=== PATIENT | male | born 1985 | race Caucasian/White ===

== ENCOUNTER 2018-12-19 17:48 | Observation (INO) | payer OTHER, BC ==
[2018-12-19] MEDS ORDERED: NITROGLYCERIN OINT 1 INCH/GM PACKET TOPICAL STA (17:56)
--- NOTE | 2018-12-19 18:07 | ED ---
General Adult HPI - General Stated complaint: Chest Pain Time Seen by Provider: 12/19/18 17:50 Source: RN notes reviewed - History of Present Illness Initial comments: This is a 33-year-old male who presents emergency Department complaining of chest pain. Patient states he had multiple episodes since Monday. Patient states she's also become more more short of breath since Monday. Patient states any little exertion causes some shortness of breath. Patient describes the chest pain as heaviness on his chest that radiates to his neck. Patient states she's also had multiple episodes of lightheadedness. Patient states on the way and he was given 2 nitroglycerin and it completely resolved his pain. Patient states he has strong family history of heart disease. Patient states he has not have any known heart disease he does not smoke he has no diabetes no high blood pressure no high cholesterol. Patient states he did have some diaphoretic episodes with the chest pain - Related Data Home Medications Medication Instructions Recorded Confirmed Capsaicin [Zostrix] 1 applic TOPICAL QID 12/19/18 12/19/18 Diltiazem Oral [Cardizem*] 60 mg PO BID 12/19/18 12/19/18 Dotera Vitamin Pack 1 tab PO DAILY 12/19/18 12/19/18 Lidocaine 5% Patch [Lidoderm 5% 1 patch TRANSDERM DAILY PRN 12/19/18 12/19/18 Patch] Meloxicam [Mobic] 7.5 mg PO BID 12/19/18 12/19/18 Omeprazole 20 mg PO BID 12/19/18 12/19/18 Allergies Allergy/AdvReac Type Severity Reaction Status Date / Time No Known Allergies Allergy Verified 12/19/18 18:16 Review of Systems ROS Statement: Those systems with pertinent positive or pertinent negative responses have been documented in the HPI. ROS Other: All systems not noted in ROS Statement are negative. Past Medical History Past Medical History: GERD/Reflux, Sleep Apnea/CPAP/BIPAP Additional Past Medical History / Comment(s): USES CPAP. ARRYTHMIA (DOES NOT KNOW TYPE). History of Any Multi-Drug Resistant Organisms: None Reported Past Surgical History: Hernia Repair, Orthopedic Surgery Additional Past Surgical History / Comment(s): BILATERAL SHOULDERS. HERNIA X2. Past Anesthesia/Blood Transfusion Reactions: No Reported Reaction Smoking Status: Never smoker Past Alcohol Use History: Occasional Past Drug Use History: None Reported General Exam - General Exam Comments Initial Comments: GENERAL: Patient is well-developed and well-nourished. Patient is nontoxic and well- hydrated and is in mild distress. ENT: Neck is soft and supple. No significant lymphadenopathy is noted. Oropharynx is clear. Moist mucous membranes. Neck has full range of motion without eliciting any pain. EYES: The sclera were anicteric and conjunctiva were pink and moist. Extraocular movements were intact and pupils were equal round and reactive to light. Eyelids were unremarkable. PULMONARY: Unlabored respirations. Good breath sounds bilaterally. No audible rales rhonchi or wheezing was noted. CARDIOVASCULAR: There is a regular rate and rhythm without any murmurs gallops or rubs. ABDOMEN: Soft and nontender with normal bowel sounds. No palpable organomegaly was noted. There is no palpable pulsatile mass. SKIN: Skin is clear with no lesions or rashes and otherwise unremarkable. NEUROLOGIC: Patient is alert and oriented x3. Cranial nerves II through XII are grossly intact. Motor and sensory are also intact. Normal speech, volume and content. Symmetrical smile. MUSCULOSKELETAL: Normal extremities with adequate strength and full range of motion. No lower extremity swelling or edema. No calf tenderness. LYMPHATICS: No significant lymphadenopathy is noted PSYCHIATRIC: Normal psychiatric evaluation. Course Vital Signs 12/19/18 12/19/18 12/19/18 17:52 19:00 20:00 Temperature 97.4 F L Pulse Rate 70 69 71 Respiratory 20 12 16 Rate Blood Pressure 127/86 121/79 141/83 O2 Sat by Pulse 96 95 95 Oximetry Medical Decision Making - Medical Decision Making EKG shows normal sinus rhythm at 70 bpm [place] interval is 152 QRS is 90 QT interval 392 QTC is 429. Patient's EKG shows no ST segment elevation or depression or T wave abnormalities are noted. Chest x-ray shows no acute abnormality. Patient's pain resolved after the nitroglycerin and he remained chest pain-free in the emergency department. I spoke with Dr. davis to admit the patient admitted patient I consult cardiology. - Lab Data Result diagrams: 12/19/18 18:12/19/18 18:09 Lab Results 12/19/18 12/19/18 12/19/18 Range/Units 18:09 18:09 18:09 WBC 8.8 (3.8-10.6) k/uL RBC 5.04 (4.30-5.90) m/uL Hgb 14.9 (13.0-17.5) gm/dL Hct 43.6 (39.0-53.0) % MCV 86.6 (80.0-100.0) fL MCH 29.5 (25.0-35.0) pg MCHC 34.0 (31.0-37.0) g/dL RDW 12.3 (11.5-15.5) % Plt Count 292 (150-450) k/uL Neutrophils % 60 % Lymphocytes % 25 % Monocytes % 6 % Eosinophils % 5 % Basophils % 1 % Neutrophils # 5.3 (1.3-7.7) k/uL Lymphocytes # 2.2 (1.0-4.8) k/uL Monocytes # 0.6 (0-1.0) k/uL Eosinophils # 0.4 (0-0.7) k/uL Basophils # 0.1 (0-0.2) k/uL PT 10.8 (9.0-12.0) sec INR 1.0 (<1.2) APTT 26.6 (22.0-30.0) sec D-Dimer 0.90 H (<0.60) mg/L FEU Sodium 142 (137-145) mmol/L Potassium 4.0 (3.5-5.1) mmol/L Chloride 107 (98-107) mmol/L Carbon Dioxide 24 (22-30) mmol/L Anion Gap 11 mmol/L BUN 15 (9-20) mg/dL Creatinine 1.16 (0.66-1.25) mg/dL Est GFR (CKD-EPI)AfAm >90 (>60 ml/min/1.73 sqM) Est GFR (CKD-EPI)NonAf 83 (>60 ml/min/1.73 sqM) Glucose 95 (74-99) mg/dL Calcium 8.8 (8.4-10.2) mg/dL Magnesium 2.1 (1.6-2.3) mg/dL Total Bilirubin 0.3 (0.2-1.3) mg/dL AST 43 (17-59) U/L ALT 40 (21-72) U/L Alkaline Phosphatase 130 H (38-126) U/L Troponin I (0.000-0.034) ng/mL NT-Pro-B Natriuret Pep pg/mL Total Protein 8.3 H (6.3-8.2) g/dL Albumin 4.7 (3.5-5.0) g/dL 12/19/18 12/19/18 Range/Units 18:09 18:09 WBC (3.8-10.6) k/uL RBC (4.30-5.90) m/uL Hgb (13.0-17.5) gm/dL Hct (39.0-53.0) % MCV (80.0-100.0) fL MCH (25.0-35.0) pg MCHC (31.0-37.0) g/dL RDW (11.5-15.5) % Plt Count (150-450) k/uL Neutrophils % % Lymphocytes % % Monocytes % % Eosinophils % % Basophils % % Neutrophils # (1.3-7.7) k/uL Lymphocytes # (1.0-4.8) k/uL Monocytes # (0-1.0) k/uL Eosinophils # (0-0.7) k/uL Basophils # (0-0.2) k/uL PT (9.0-12.0) sec INR (<1.2) APTT (22.0-30.0) sec D-Dimer (<0.60) mg/L FEU Sodium (137-145) mmol/L Potassium (3.5-5.1) mmol/L Chloride (98-107) mmol/L Carbon Dioxide (22-30) mmol/L Anion Gap mmol/L BUN (9-20) mg/dL Creatinine (0.66-1.25) mg/dL Est GFR (CKD-EPI)AfAm (>60 ml/min/1.73 sqM) Est GFR (CKD-EPI)NonAf (>60 ml/min/1.73 sqM) Glucose (74-99) mg/dL Calcium (8.4-10.2) mg/dL Magnesium (1.6-2.3) mg/dL Total Bilirubin (0.2-1.3) mg/dL AST (17-59) U/L ALT (21-72) U/L Alkaline Phosphatase (38-126) U/L Troponin I <0.012 (0.000-0.034) ng/mL NT-Pro-B Natriuret Pep <11 pg/mL Total Protein (6.3-8.2) g/dL Albumin (3.5-5.0) g/dL Disposition Clinical Impression: Chest pain Disposition: ADMITTED IP TO THIS HOSP Referrals: [facility],Clinic [Primary Care Provider] - 1-2 days Time of Disposition: 20:21
[2018-12-19 18:18] LABS: Basophils # (A) 0.1 k/uL (0-0.2); Basophils % (A) 1 %; Eosinophils # (A) 0.4 k/uL (0-0.7); Eosinophils % (A) 5 %; HCT 43.6 % (39.0-53.0); HGB 14.9 gm/dL (13.0-17.5); Lymphocytes # (A) 2.2 k/uL (1.0-4.8); Lymphocytes % (A) 25 %; MCH 29.5 pg (25.0-35.0); MCV 86.6 fL (80.0-100.0); Mean Platelet Volume 6.6; Monocytes # (A) 0.6 k/uL (0-1.0); Monocytes % (A) 6 %; Neutrophils # (A) 5.3 k/uL (1.3-7.7); Neutrophils % (A) 60 %; Platelet Count 292 k/uL (150-450); RBC 5.04 m/uL (4.30-5.90); RDW 12.3 % (11.5-15.5); WBC 8.8 k/uL (3.8-10.6)
[2018-12-19 18:26] LABS: ALT 40 U/L (21-72); AST 43 U/L (17-59); African American GFR (CKD) >90 (>60 ml/min/1.73 sqM); Albumin 4.7 g/dL (3.5-5.0); Alkaline Phosphatase 130 U/L (38-126); Anion Gap 11 mmol/L; Blood Urea Nitrogen 15 mg/dL (9-20); Calcium 8.8 mg/dL (8.4-10.2); Carbon Dioxide 24 mmol/L (22-30); Chloride 107 mmol/L (98-107); Glucose 95 mg/dL (74-99); Magnesium 2.1 mg/dL (1.6-2.3); Sodium 142 mmol/L (137-145); Total Bilirubin 0.3 mg/dL (0.2-1.3); Total Protein 8.3 g/dL (6.3-8.2)
[2018-12-19 18:30] LABS: Partial Thromboplastin Time 26.6 sec (22.0-30.0); Prothrombin Time 10.8 sec (9.0-12.0)
[2018-12-19 18:35] LABS: D-Dimer 0.9 mg/L FEU (<0.60)
--- NOTE | 2018-12-19 19:07 | XR ---
EXAMINATION: XR chest 2V DATE AND TIME: 12/19/2018 6:24 PM CLINICAL INDICATION: PHH; Chest Pain TECHNIQUE: Departmental protocol COMPARISON: 07/16/2012 FINDINGS: The lungs are clear. The pleural spaces are negative. The cardiac silhouette is not enlarged. The remainder of the mediastinal silhouette is unremarkable. The skeletal structures and soft tissues are negative for acute findings. IMPRESSION: NO ACUTE PROCESS.
--- NOTE | 2018-12-19 20:07 | CT ---
EXAMINATION TYPE: CT chest angio for PE with contrast, with 3D reconstruction renderings DATE OF EXAM: 12/19/2018 COMPARISON: None HISTORY: chest pain CT DLP: 534.1 mGycm Automated exposure control for dose reduction was used. CONTRAST: CT Chest for pulmonary embolism performed with with IV Contrast, patient injected with 93cc mL of Isovue 370. FINDINGS: LUNGS: The lungs are grossly clear, there is no concerning parenchymal mass or nodule identified. T here is no pleural effusion or pneumothorax seen. The tracheobronchial tree is patent. MEDIASTINUM: There is satisfactory enhancement of the pulmonary artery and its branches, there is no CT evidence for pulmonary embolism. There are no greater than 1 cm hilar or mediastinal lymph nodes. No acute aortic findings. No cardiomegaly. No pericardial effusion is seen. OTHER: No additional significant abnormality is seen. IMPRESSION: No acute process.
[2018-12-19] MEDS ORDERED: NITROGLYCERIN SL TABS 0.4 MG TAB SUBLINGUAL PRN (20:25)
[2018-12-19] MEDS: NITROGLYCERIN OINT 1 INCH/GM PACKET TOPICAL SCH (23:27)
[2018-12-20] MEDS: MELOXICAM 7.5 MG TAB PO SCH ×2 (00:53→10:23)
[2018-12-20] MEDS: DILTIAZEM ORAL 60 MG TAB PO SCH ×2 (00:53→10:24)
[2018-12-20 03:38] LABS: Cholesterol 204 mg/dL (<200); HDL Cholesterol 36 mg/dL (40-60); LDL Cholesterol,Calculated 89 mg/dL (0-99); Triglycerides 396 mg/dL (<150)
[2018-12-20] MEDS: NITROGLYCERIN OINT 1 INCH/GM PACKET TOPICAL SCH (06:15)
[2018-12-20 07:49] VITALS: RESP 16
--- NOTE | 2018-12-20 08:31 | CONS ---
CONSULTATION Mr. De Santiago is a 33-year-old male who is followed at the [facility] who presented with symptoms of chest discomfort and palpitation. His symptoms started on Monday on and off with initially palpitations. Subsequently he started to have chest tightness and dyspnea. The dyspnea and chest discomfort were worse at rest and better with physical activity, lasting for about 10 minutes. He is active physically, has no associated symptoms. He has been having palpitation on and off for the last few years and has been evaluated about 2 years or so ago in the [facility] in [place] and underwent a myocardial perfusion imaging and an echocardiogram and according to him, they were unremarkable. He denies any PND, orthopnea, or peripheral edema. No syncope. No significant dizziness with palpitation. He has no recent fever or cough. His coronary risk factors are negative for hypertension, hyperlipidemia, or diabetes. He is a nonsmoker. He has a family history of premature coronary disease in his father side of the family including his father who had a bypass in his 50s. SOCIAL HISTORY: He has a social alcohol intake. He drinks 2 cups of coffee a day. MEDICATION: His medications include omeprazole 20 mg twice a day, Mobic 7.5 mg twice a day, diltiazem 60 mg twice a day. REVIEW OF SYSTEMS: RESPIRATORY SYSTEM: He has no documented history of asthma, emphysema or bronchitis in the recent past. GI SYSTEM: No recent GI bleeding. No peptic ulcer disease. SYSTEM: No dysuria or hematuria. NERVOUS SYSTEM: No stroke or seizure. PHYSICAL EXAMINATION: He is a 33-year-old male, alert, oriented, in no apparent distress. Blood pressure 102/60 with the heart rate in the 70s. HEAD: Normocephalic. EYES: Sclerae nonicteric. NECK: Good upstroke. No bruit. No jugular venous distention. LUNGS: Clear to auscultation. HEART: Regular rate and rhythm. S1, S2. No S3. No S4. No murmur or rub. ABDOMEN: Soft, nontender. Positive bowel sounds. No organomegaly. EXTREMITIES: No edema. Intact distal pulses. EKG reveals sinus mechanism, normal axis and intervals, QS in the inferior leads of unknown significant with no evolution. Chest x-ray revealed no acute infiltrate. Chest CT angiography revealed no acute infiltrate or pneumonia. LAB DATA: Lab data revealed troponin less than 0.012 for 3 samples. Cholesterol of 204, LDL of 89, triglycerides of 396. BUN and creatinine 15 and 1.16. Hemoglobin of 14.9. D- dimer of 0.9. IMPRESSION: 1. Symptoms of chest discomfort of unclear etiology. Has atypical features for ischemic heart disease. 2. Palpitation with no evidence of malignant arrhythmia on the monitor. 3. Hypertriglyceridemia. RECOMMENDATION: I have recommended proceeding with an echocardiogram and a stress echo and depending on those results, further recommendation will be made. His baseline EKG raised the question of inferior myocardial infarction, but there was no evolution. Thank you for this consult. We will follow with you. MMODL / IJN: [id number] /
[2018-12-20] MEDS ORDERED: ASPIRIN 325 MG TAB PO SCH (09:00)
[2018-12-20] MEDS ORDERED: ASPIRIN 81 MG PO SCH (09:00)
[2018-12-20 11:38] VITALS: BP 109/74; PULSE 78; TEMP 97.8
--- NOTE | 2018-12-20 12:50 | ECHOF ---
Referral Reason:cp MEASUREMENTS -------- HEIGHT: 172.7 cm WEIGHT: 106.6 kg BP: 102/66 RVIDd: 2.2 cm (< 3.3) IVSd: 1.4 cm (0.6 - 1.1) LVIDd: 4.1 cm (3.9 - 5.3) LVPWd: 1.6 cm (0.6 - 1.1) IVSs: 2.0 cm LVIDs: 2.2 cm LVPWs: 1.7 cm LAESV Index (A-L): 19.22 ml/m Ao Diam: 3.7 cm (2.0 - 3.7) AV Cusp: 2.5 cm (1.5 - 2.6) LA Diam: 3.1 cm (2.7 - 3.8) MV EXCURSION: 15.271 mm (> 18.000) MV EF SLOPE: 77 mm/s (70 - 150) EPSS: 0.2 cm MV E Malik: 0.58 m/s MV DecT: 312 ms MV A Malki: 0.58 m/s MV E/A Ratio: 1.01 RAP: 15.00 mmHg RVSP: 36.27 mmHg FINDINGS -------- Sinus rhythm. This was a technically good study. The left ventricular size is normal. There is moderate concentric left ventricular hypertrophy. O verall left ventricular systolic function is normal with, an EF between 55 - 60 %. The right ventricle is normal in size. Normal LA size by volume 22+/-6 ml/m2. The right atrial size is normal. Interatrial and interventricular septum intact. The aortic valve is trileaflet, and appears structurally normal. No aortic stenosis or regurgitation. The mitral valve is normal. There is trace mitral regurgitation. Mild tricuspid regurgitation present. There is mild pulmonary hypertension. The right ventricular systolic pressure, as measured by Doppler, is 36.27mmHg. Trace/mild (physiologic) pulmonic regurgitation. The aortic root size is normal. The inferior vena cava is mildly dilated. There is no pericardial effusion. CONCLUSIONS -------- 1. Sinus rhythm. 2. This was a technically good study. 3. The left ventricular size is normal. 4. There is moderate concentric left ventricular hypertrophy. 5. Overall left ventricular systolic function is normal with, an EF between 55 - 60 %. 6. Normal LA size by volume 22+/-6 ml/m2. 7. Interatrial and interventricular septum intact. 8. The aortic valve is trileaflet, and appears structurally normal. No aortic stenosis or regurgitati on. 9. The mitral valve is normal. 10. There is trace mitral regurgitation. 11. Mild tricuspid regurgitation present. 12. There is mild pulmonary hypertension. 13. Trace/mild (physiologic) pulmonic regurgitation. 14. The aortic root size is normal. 15. The inferior vena cava is mildly dilated. 16. There is no pericardial effusion. SHELLFISH SHUCKER: Danna Carrera RDCS
--- NOTE | 2018-12-20 13:40 | ECHOS ---
STRESS ECHOCARDIOGRAM DATE OF SERVICE: 12/20/2018 INDICATIONS: Chest pain. MEDICATIONS: BASELINE HEART RATE: 67 BASELINE BLOOD PRESSURE: 110/62 MAXIMUM HEART RATE: 172 MAXIMUM BLOOD PRESSURE: 185/58 85% MPHR: 159 100% MPHR: 187 METS: 12.2 MAXIMUM STAGE REACHED: IV TOTAL EXERCISE TIME: 11 minutes CLINICAL INFORMATION: Baseline rhythm is sinus mechanism, rate 67, normal axis, intervals, cannot exclude inferior myocardial infarction. Baseline blood pressure 110/62 mmHg. Patient exercised on Adolfo protocol for 11 minutes reaching peak rate 172 beats per minute which is equal to 92% maximum predicted heart rate. Peak blood pressure 185/58 mmHg. Test was terminated secondary to fatigue. There was no chest pain. Electrocardiograph monitoring revealed no evidence of ischemic ST-segment changes. Baseline echocardiogram revealed normal wall thickening and motion. At peak exercise, there was normal wall motion augmentation with no hypokinesis or dyskinesis. CONCLUSION: 1. Good exercise tolerance with normal EKG response to exercise. 2. Normal stress echocardiogram with no evidence of stress induced ischemia. MMODL / IJN: [id number] /
--- NOTE | 2018-12-20 14:18 | P.HPIM ---
History of Present Illness -year-old pleasant male came in with complains of palpitations with chest tightness lasted for about 10 minutes [id number] pain in the precordial area radiating to the neck area. Patient had dizziness of troponins and the EKG which are negative. Patient had a stress test that is negative. Minimally elevated d-dimer because of which patient had a CT end of the chest which is negative. Patient is clinically doing well chest pain resolved probably Mus[place] skeletal nature will be discharged today. Patient has mildly elevated triglycerides at counseling was provided. Patient does have family history of premature coronary artery disease in her father. Patient is on Cardizem and firearm arrhythmia kind of arrhythmia is not known. Patient is sinus rhythm. Review of Systems REVIEW OF SYSTEMS: CONSTITUTIONAL: No fever, no malaise, no fatigue. HEENT: No recent visual problems or hearing problems. Denied any sore throat. CARDIOVASCULAR: No orthopnea, PND, no syncope. PULMONARY: No shortness of breath, no cough, no hemoptysis. GASTROINTESTINAL: No diarrhea, no nausea, no vomiting, no abdominal pain. NEUROLOGICAL: No headaches, no weakness, no numbness. HEMATOLOGICAL: Denies any bleeding or petechiae. GENITOURINARY: Denies any burning micturition, frequency, or urgency. MUSCULOSKELETAL/RHEUMATOLOGICAL: Denies any joint pain, swelling, or any muscle pain. ENDOCRINE: Denies any polyuria or polydipsia. The rest of the 14-point review of systems is negative. Past Medical History Past Medical History: GERD/Reflux, Sleep Apnea/CPAP/BIPAP Additional Past Medical History / Comment(s): USES CPAP. ARRYTHMIA (DOES NOT KNOW TYPE). History of Any Multi-Drug Resistant Organisms: None Reported Past Surgical History: Hernia Repair, Orthopedic Surgery Additional Past Surgical History / Comment(s): BILATERAL SHOULDERS. HERNIA X2. Past Anesthesia/Blood Transfusion Reactions: No Reported Reaction Smoking Status: Never smoker - Past Family History Mother Family Medical History: No Reported History Father Family Medical History: Coronary Artery Disease (CAD), Hypertension Additional Family Medical History / Comment(s): cabg Sister(s) Family Medical History: Thyroid Disorder Daughter(s) Family Medical History: No Reported History Medications and Allergies Home Medications Medication Instructions Recorded Confirmed Type Capsaicin [Zostrix] 1 applic TOPICAL QID 12/19/18 12/19/18 History Diltiazem Oral [Cardizem*] 60 mg PO BID 12/19/18 12/19/18 History Dotera Vitamin Pack 1 tab PO DAILY 12/19/18 12/19/18 History Lidocaine 5% Patch [Lidoderm 5% 1 patch TRANSDERM DAILY PRN 12/19/18 12/19/18 History Patch] Meloxicam [Mobic] 7.5 mg PO BID 12/19/18 12/19/18 History Omeprazole 20 mg PO BID 12/19/18 12/19/18 History Allergies Allergy/AdvReac Type Severity Reaction Status Date / Time No Known Allergies Allergy Verified 12/19/18 22:54 Physical Exam Vitals: Vital Signs Temp Pulse Pulse Resp BP BP Pulse Ox 12/20/18 11:37 97.8 F 78 16 109/74 92 L 12/20/18 07:46 97.7 F 76 16 102/66 91 L 12/20/18 03:58 97.7 F 71 18 104/58 94 L 12/20/18 03:29 18 12/19/18 23:50 97.5 F L 81 18 122/72 95 12/19/18 23:19 16 12/19/18 21:38 97.9 F 12/19/18 20:00 71 16 141/83 95 12/19/18 19:00 69 12 121/79 95 12/19/18 17:52 97.4 F L 70 20 127/86 96 Intake and Output 12/19/18 12/20/18 12/20/18 22:59 06:59 14:59 Other: Voiding Method Toilet Toilet # Voids 2 Weight 107.002 kg PHYSICAL EXAMINATION: GENERAL: The patient is alert and oriented x3, not in any acute distress. Well developed, well nourished. HEENT: Pupils are round and equally reacting to light. EOMI. No scleral icterus. No conjunctival pallor. Normocephalic, atraumatic. No pharyngeal erythema. No thyromegaly. CARDIOVASCULAR: S1 and S2 present. No murmurs, rubs, or gallops. PULMONARY: Chest is clear to auscultation, no wheezing or crackles. ABDOMEN: Soft, nontender, nondistended, normoactive bowel sounds. No palpable organomegaly. MUSCULOSKELETAL: No joint swelling or deformity. EXTREMITIES: No cyanosis, clubbing, or pedal edema. NEUROLOGICAL: Gross neurological examination did not reveal any focal deficits. SKIN: No rashes. Results CBC & Chem 7: 12/19/18 18:09 12/19/18 18:09 Labs: Abnormal Lab Results - Last 24 Hours (Table) 12/19/18 12/19/18 12/19/18 Range/Units 18:09 18: 18:09 D-Dimer 0.90 H (<0.60) mg/L FEU Alkaline Phosphatase 130 H (38-126) U/L Total Protein 8.3 H (6.3-8.2) g/dL Triglycerides 396 H (<150) mg/dL Cholesterol 204 H (<200) mg/dL HDL Cholesterol 36 L (40-60) mg/dL Thrombosis Risk Factor Assmnt - Choose All That Apply Any of the Below Risk Factors Present?: Yes Each Factor Represents 1 point: Obesity (BMI >25) Other Risk Factors: No Other congenital or acquired thrombophilia - If yes, enter type in comment: No Thrombosis Risk Factor Assessment Total Risk Factor Score: 1 Thrombosis Risk Factor Assessment Level: Low Risk Assessment and Plan Plan: -chest discomfort probably Musko skeletal etiology not clear though. Resolved rule out a concurrent syndromes. -Rule out pulmonary embolism -Hypertriglyceridemia dietary counseling Plan as mentioned in the history itself
--- NOTE | 2018-12-20 14:18 | P.DS ---
Providers Date of admission: 12/19/18 20:25 Attending physician: Kraig Ríos MD Consults: 12/19/18 20:25 Consult Physician Urgent Consulting Provider: [facility] Consult Reason/Comments: Chest pain Do you want consulting provider notified?: Yes Primary care physician: [facility] Hospital Course: as mentioned in HPI Plan - Discharge Summary Discharge Rx Participant: No New Discharge Prescriptions: No Action Omeprazole 20 mg PO BID Meloxicam [Mobic] 7.5 mg PO BID Lidocaine 5% Patch [Lidoderm 5% Patch] 1 patch TRANSDERM DAILY PRN PRN Reason: LOW BACK PAIN Capsaicin [Zostrix] 1 applic TOPICAL QID Diltiazem Oral [Cardizem*] 60 mg PO BID Dotera Vitamin Pack 1 tab PO DAILY Discharge Medication List Capsaicin [Zostrix] 1 applic TOPICAL QID 12/19/18 [History] Diltiazem Oral [Cardizem*] 60 mg PO BID 12/19/18 [History] Dotera Vitamin Pack 1 tab PO DAILY 12/19/18 [History] Lidocaine 5% Patch [Lidoderm 5% Patch] 1 patch TRANSDERM DAILY PRN 12/19/18 [History] Meloxicam [Mobic] 7.5 mg PO BID 12/19/18 [History] Omeprazole 20 mg PO BID 12/19/18 [History] Follow up Appointment(s)/Referral(s): [facility] [Primary Care Provider] - 3 Days
== END 2018-12-20 15:21 | disposition home or self-care (01) ==
LOC: EC 17:48 → 1SOBS 20:25
PROVIDERS: ADMIT Internal Medicine; ATTEND Internal Medicine
DX: R07.89 Other chest pain (principal); R07.2 Precordial pain; R06.02 Shortness of breath; R42 Dizziness and giddiness; R00.2 Palpitations; R61 Generalized hyperhidrosis; R06.00 Dyspnea, unspecified; E78.1 Pure hyperglyceridemia; I49.9 Cardiac arrhythmia, unspecified; R79.89 Other specified abnormal findings of blood chemistry; K21.9 Gastro-esophageal reflux disease without esophagitis; G47.30 Sleep apnea, unspecified; E66.9 Obesity, unspecified; Z68.35 Body mass index [BMI] 35.0-35.9, adult; Z99.89 Dependence on other enabling machines and devices; Z79.1 Long term (current) use of non-steroidal anti-inflammatories (NSAID); Z79.899 Other long term (current) drug therapy; Z82.49 Family history of ischemic heart disease and other diseases of the circulatory system; Z83.49 Family history of other endocrine, nutritional and metabolic diseases
CPT/HCPCS: 36415; 93005; 93306; 93351; 85379; 83880; 80061; 80053; 83735; 84484 ×2; 85025; 85610; 85730; 71046; 71275; G0378 ×2; Q9967

== ENCOUNTER 2020-10-28 14:50 | Emergency (ER) | payer OTHER ==
[2020-10-28 15:02] VITALS: RESP 20
--- NOTE | 2020-10-28 15:41 | XR ---
EXAMINATION TYPE: XR chest 2V DATE OF EXAM: 10/28/2020 COMPARISON: NONE HISTORY: Chest pain TECHNIQUE: Frontal and lateral views of the chest are obtained. FINDINGS: There is no focal air space opacity. No evidence for pneumothorax. No pleural effusion. The cardiac silhouette size is within normal limits. The osseous structures are grossly intact. IMPRESSION: 1. No acute cardiopulmonary process.
[2020-10-28 16:05] LABS: Basophils # (A) 0.1 k/uL (0-0.2); Basophils % (A) 1 %; Eosinophils # (A) 0.3 k/uL (0-0.7); Eosinophils % (A) 5 %; HCT 43.4 % (39.0-53.0); HGB 15.6 gm/dL (13.0-17.5); Lymphocytes # (A) 2.3 k/uL (1.0-4.8); Lymphocytes % (A) 33 %; MCH 31.1 pg (25.0-35.0); MCV 86.4 fL (80.0-100.0); Mean Platelet Volume 6.7; Monocytes # (A) 0.5 k/uL (0-1.0); Monocytes % (A) 7 %; Neutrophils # (A) 3.7 k/uL (1.3-7.7); Neutrophils % (A) 53 %; Platelet Count 330 k/uL (150-450); RBC 5.03 m/uL (4.30-5.90); RDW 11.8 % (11.5-15.5)
[2020-10-28 16:35] LABS: ALT 47 U/L (4-49); AST 45 U/L (17-59); African American GFR (CKD) >90 (>60 ml/min/1.73 sqM); Albumin 4.9 g/dL (3.5-5.0); Alkaline Phosphatase 184 U/L (38-126); Anion Gap 10 mmol/L; Blood Urea Nitrogen 11 mg/dL (9-20); Calcium 9.4 mg/dL (8.4-10.2); Carbon Dioxide 24 mmol/L (22-30); Chloride 104 mmol/L (98-107); Glucose 99 mg/dL (74-99); Non-African American GFR(CKD) >90 (>60 ml/min/1.73 sqM); Potassium 4.4 mmol/L (3.5-5.1); Sodium 138 mmol/L (137-145); Total Bilirubin 0.4 mg/dL (0.2-1.3); Total Protein 8.8 g/dL (6.3-8.2)
--- NOTE | 2020-10-28 17:13 | ED ---
General Adult HPI - General Chief complaint: Chest Pain Stated complaint: chest pain, SOB, isha pain Time Seen by Provider: 10/28/20 15:00 Source: patient, RN notes reviewed, old records reviewed Mode of arrival: ambulatory Limitations: no limitations - History of Present Illness Initial comments: This is a 35-year-old male who presents emergency Department with no significant past medical history. Patient states she's had some left-sided chest discomfort that he states lasts only at most 30 seconds. Patient states it happens about 15 times today. Patient states she's been dealing with this for over 2 years. 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 Patient states he's supposed to get another stress test and near future as well as a Holter monitor. Patient denies any difficulty breathing. Patient denies any recent fever chills or cough. Patient denies any radiation of pain into the jaw or arm. Patient states occasionally has felt some back tightness. Patient denies abdominal pain patient denies nausea vomiting diarrhea. Patient stated leg swelling or calf tenderness. - Related Data Home Medications Medication Instructions Recorded Confirmed Capsaicin [Zostrix] 1 applic TOPICAL QID 12/19/18 12/19/18 Diltiazem Oral [Cardizem*] 60 mg PO BID 12/19/18 12/19/18 Dotera Vitamin Pack 1 tab PO DAILY 12/19/18 12/19/18 Lidocaine 5% Patch [Lidoderm 5% 1 patch TRANSDERM DAILY PRN 12/19/18 12/19/18 Patch] Meloxicam [Mobic] 7.5 mg PO BID 12/19/18 12/19/18 Omeprazole 20 mg PO BID 12/19/18 12/19/18 Allergies Allergy/AdvReac Type Severity Reaction Status Date / Time No Known Allergies Allergy Verified 10/28/20 15:02 Review of Systems ROS Statement: Those systems with pertinent positive or pertinent negative responses have been documented in the HPI. ROS Other: All systems not noted in ROS Statement are negative. Past Medical History Past Medical History: GERD/Reflux, Sleep Apnea/CPAP/BIPAP Additional Past Medical History / Comment(s): USES CPAP. ARRYTHMIA (DOES NOT KNOW TYPE). History of Any Multi-Drug Resistant Organisms: None Reported Past Surgical History: Hernia Repair, Orthopedic Surgery Additional Past Surgical History / Comment(s): BILATERAL SHOULDERS. HERNIA X2. Past Anesthesia/Blood Transfusion Reactions: No Reported Reaction Past Psychological History: No Psychological Hx Reported Smoking Status: Never smoker Past Alcohol Use History: Occasional Past Drug Use History: None Reported - Past Family History Mother Family Medical History: No Reported History Father Family Medical History: Coronary Artery Disease (CAD), Hypertension Additional Family Medical History / Comment(s): cabg Sister(s) Family Medical History: Thyroid Disorder Daughter(s) Family Medical History: No Reported History General Exam - General Exam Comments Initial Comments: GENERAL: Patient is well-developed and well-nourished. Patient is nontoxic and well- hydrated and is in no acute distress. ENT: Neck is soft and supple. No significant lymphadenopathy is noted. Oropharynx is clear. Moist mucous membranes. Neck has full range of motion without eliciting any pain. EYES: The sclera were anicteric and conjunctiva were pink and moist. Extraocular movements were intact and pupils were equal round and reactive to light. Eyelids were unremarkable. PULMONARY: Unlabored respirations. Good breath sounds bilaterally. No audible rales rhonchi or wheezing was noted. CARDIOVASCULAR: There is a regular rate and rhythm without any murmurs gallops or rubs. ABDOMEN: Soft and nontender with normal bowel sounds. SKIN: Skin is clear with no lesions or rashes and otherwise unremarkable. NEUROLOGIC: Patient is alert and oriented x3. Cranial nerves II through XII are grossly intact. Motor and sensory are also intact. Normal speech, volume and content. Symmetrical smile. MUSCULOSKELETAL: Normal extremities with adequate strength and full range of motion. No lower extremity swelling or edema. No calf tenderness. LYMPHATICS: No significant lymphadenopathy is noted PSYCHIATRIC: Normal psychiatric evaluation. Limitations: no limitations Course Vital Signs 10/28/20 14:57 Temperature 98.0 F Pulse Rate 71 Respiratory 20 Rate Blood Pressure 147/92 O2 Sat by Pulse 96 Oximetry Medical Decision Making - Medical Decision Making EKG shows normal sinus rhythm at 73 bpm WV interval 156 dresses 88 QT interval 390 QTC is 429. Patient's EKG shows no ST segment elevation or depression. - Lab Data Result diagrams: 10/28/20 15:58 10/28/20 15:58 Lab Results 10/28/20 10/28/20 10/28/20 Range/Units 15:58 15:58 15:58 WBC 7.0 (3.8-10.6) k/uL RBC 5.03 (4.30-5.90) m/uL Hgb 15.6 (13.0-17.5) gm/dL Hct 43.4 (39.0-53.0) % MCV 86.4 (80.0-100.0) fL MCH 31.1 (25.0-35.0) pg MCHC 36.0 (31.0-37.0) g/dL RDW 11.8 (11.5-15.5) % Plt Count 330 (150-450) k/uL MPV 6.7 Neutrophils % 53 % Lymphocytes % 33 % Monocytes % 7 % Eosinophils % 5 % Basophils % 1 % Neutrophils # 3.7 (1.3-7.7) k/uL Lymphocytes # 2.3 (1.0-4.8) k/uL Monocytes # 0.5 (0-1.0) k/uL Eosinophils # 0.3 (0-0.7) k/uL Basophils # 0.1 (0-0.2) k/uL PT Cancelled INR Cancelled APTT INFORMATION TECHNOLOGY MANAGER Sodium 138 (137-145) mmol/L Potassium 4.4 (3.5-5.1) mmol/L Chloride 104 (98-107) mmol/L Carbon Dioxide 24 (22-30) mmol/L Anion Gap 10 mmol/L BUN 11 (9-20) mg/dL Creatinine 1.06 (0.66-1.25) mg/dL Est GFR (CKD-EPI)AfAm >90 (>60 ml/min/1.73 sqM) Est GFR (CKD-EPI)NonAf >90 (>60 ml/min/1.73 sqM) Glucose 99 (74-99) mg/dL Calcium 9.4 (8.4-10.2) mg/dL Magnesium 2.0 (1.6-2.3) mg/dL Total Bilirubin 0.4 (0.2-1.3) mg/dL AST 45 (17-59) U/L ALT 47 (4-49) U/L Alkaline Phosphatase 184 H (38-126) U/L Troponin I (0.000-0.034) ng/mL Total Protein 8.8 H (6.3-8.2) g/dL Albumin 4.9 (3.5-5.0) g/dL 10/28/20 Range/Units 15:58 WBC (3.8-10.6) k/uL RBC (4.30-5.90) m/uL Hgb (13.0-17.5) gm/dL Hct (39.0-53.0) % MCV (80.0-100.0) fL MCH (25.0-35.0) pg MCHC (31.0-37.0) g/dL RDW (11.5-15.5) % Plt Count (150-450) k/uL MPV Neutrophils % % Lymphocytes % % Monocytes % % Eosinophils % % Basophils % % Neutrophils # (1.3-7.7) k/uL Lymphocytes # (1.0-4.8) k/uL Monocytes # (0-1.0) k/uL Eosinophils # (0-0.7) k/uL Basophils # (0-0.2) k/uL PT INR APTT Sodium (137-145) mmol/L Potassium (3.5-5.1) mmol/L Chloride (98-107) mmol/L Carbon Dioxide (22-30) mmol/L Anion Gap mmol/L BUN (9-20) mg/dL Creatinine (0.66-1.25) mg/dL Est GFR (CKD-EPI)AfAm (>60 ml/min/1.73 sqM) Est GFR (CKD-EPI)NonAf (>60 ml/min/1.73 sqM) Glucose (74-99) mg/dL Calcium (8.4-10.2) mg/dL Magnesium (1.6-2.3) mg/dL Total Bilirubin (0.2-1.3) mg/dL AST (17-59) U/L ALT (4-49) U/L Alkaline Phosphatase (38-126) U/L Troponin I <0.012 (0.000-0.034) ng/mL Total Protein (6.3-8.2) g/dL Albumin (3.5-5.0) g/dL Disposition Clinical Impression: Chest pain Disposition: HOME SELF-CARE Condition: Good Instructions (If sedation given, give patient instructions): Chest Pain (ED) Is patient prescribed a controlled substance at d/c from ED?: No Referrals: [facility],Clinic [Primary Care Provider] - 1-2 days Time of Disposition: 17:13
[2020-10-28 17:36] VITALS: BP 146/96; PULSE 72; TEMP 97.8
== END 2020-10-28 17:34 | disposition home or self-care (01) ==
LOC: EC 14:50
DX: R07.89 Other chest pain (principal); R06.02 Shortness of breath; M54.9 Dorsalgia, unspecified; K21.9 Gastro-esophageal reflux disease without esophagitis; G47.30 Sleep apnea, unspecified; Z79.899 Other long term (current) drug therapy
CPT/HCPCS: 36415; 71046; 80053; 83735; 84484; 85025; 85730; 93005; 99285

== ENCOUNTER 2021-08-12 13:59 | Emergency (ER) | payer BC, OTHER ==
[2021-08-12 14:07] VITALS: TEMP 98.6
--- NOTE | 2021-08-12 14:26 | ED ---
General Adult HPI - General Chief complaint: Chest Pain Stated complaint: Chest Pain Time Seen by Provider: 08/12/21 14:05 Source: patient, RN notes reviewed, old records reviewed Mode of arrival: wheelchair Limitations: no limitations - History of Present Illness Initial comments: This is a 36-year-old male who presents to the emergency department stating that he woke up this morning with a frontal headache and it was quite significant. Patient states he normally doesn't get headaches. Patient states it lasts about a half an hour now it's still there but much improved. Patient denies any neck pain or limited range of motion. Patient denies any fever chills. Patient states he's also been experiencing sharp chest pain that lasted about 10 seconds when it comes and goes away. Patient denies any difficulty breathing or shortness of breath per patient denies any nausea vomiting diarrhea. Patient denies any injury or trauma. - Related Data Home Medications Medication Instructions Recorded Confirmed Diltiazem Oral [Cardizem*] 60 mg PO BID 12/19/18 08/12/21 Omeprazole 40 mg PO DAILY 12/19/18 08/12/21 Ibuprofen [Motrin] 800 mg PO DAILY PRN 08/12/21 08/12/21 Allergies Allergy/AdvReac Type Severity Reaction Status Date / Time No Known Allergies Allergy Verified 08/12/21 15:30 Review of Systems ROS Statement: Those systems with pertinent positive or pertinent negative responses have been documented in the HPI. ROS Other: All systems not noted in ROS Statement are negative. Past Medical History Past Medical History: GERD/Reflux, Sleep Apnea/CPAP/BIPAP Additional Past Medical History / Comment(s): USES CPAP. ARRYTHMIA (DOES NOT KNOW TYPE). History of Any Multi-Drug Resistant Organisms: None Reported Past Surgical History: Hernia Repair, Orthopedic Surgery Additional Past Surgical History / Comment(s): BILATERAL SHOULDERS. HERNIA X2. Past Anesthesia/Blood Transfusion Reactions: No Reported Reaction Past Psychological History: No Psychological Hx Reported Smoking Status: Never smoker Past Alcohol Use History: Occasional Past Drug Use History: None Reported - Past Family History Mother Family Medical History: No Reported History Father Family Medical History: Coronary Artery Disease (CAD), Hypertension Additional Family Medical History / Comment(s): cabg Sister(s) Family Medical History: Thyroid Disorder Daughter(s) Family Medical History: No Reported History General Exam - General Exam Comments Initial Comments: GENERAL: Patient is well-developed and well-nourished. Patient is nontoxic and well- hydrated and is in mild distress. ENT: Neck is soft and supple. No significant lymphadenopathy is noted. Oropharynx is clear. Moist mucous membranes. Neck has full range of motion without eliciting any pain. EYES: The sclera were anicteric and conjunctiva were pink and moist. Extraocular movements were intact and pupils were equal round and reactive to light. Eyelids were unremarkable. PULMONARY: Unlabored respirations. Good breath sounds bilaterally. No audible rales rhonchi or wheezing was noted. CARDIOVASCULAR: There is a regular rate and rhythm without any murmurs gallops or rubs. ABDOMEN: Soft and nontender with normal bowel sounds. SKIN: Skin is clear with no lesions or rashes and otherwise unremarkable. NEUROLOGIC: Patient is alert and oriented x3. Cranial nerves II through XII are grossly intact. Motor and sensory are also intact. Normal speech, volume and content. Symmetrical smile. MUSCULOSKELETAL: Normal extremities with adequate strength and full range of motion. LYMPHATICS: No significant lymphadenopathy is noted PSYCHIATRIC: Normal psychiatric evaluation. Limitations: no limitations Course Vital Signs 08/12/21 08/12/21 14:04 16:13 Temperature 98.6 F Pulse Rate 83 82 Respiratory 20 18 Rate Blood Pressure 153/87 118/76 O2 Sat by Pulse 97 93 L Oximetry Medical Decision Making - Medical Decision Making EKG shows normal sinus rhythm at 81 bpm KS interval 252 QRS is 84 QT interval 368 QTC is 427. Patient's EKG shows no ST segment elevation or depression CT of the brain shows no acute abnormality. Chest x-ray showed no acute abnormality. I think into the room to reevaluate the patient he stated his symptoms had almost completely resolved but they still were fair and he was still experiencing some chest pain. I recommended the patient stay he did not want to stay I told him that was possible could have coronary artery disease in that again recommended the patient stay he states that he did not want to an would follow-up with his own doctor. - Lab Data Result diagrams: 08/12/21 14:20 08/12/21 14:20 Lab Results 08/12/21 08/12/21 08/12/21 Range/Units 14:20 14:20 14:20 WBC 7.1 (3.8-10.6) k/uL RBC 5.06 (4.30-5.90) m/uL Hgb 15.8 (13.0-17.5) gm/dL Hct 45.4 (39.0-53.0) % MCV 89.7 (80.0-100.0) fL MCH 31.2 (25.0-35.0) pg MCHC 34.8 (31.0-37.0) g/dL RDW 12.0 (11.5-15.5) % Plt Count 314 (150-450) k/uL MPV 7.3 Neutrophils % 55 % Lymphocytes % 33 % Monocytes % 6 % Eosinophils % 3 % Basophils % 1 % Neutrophils # 3.9 (1.3-7.7) k/uL Lymphocytes # 2.3 (1.0-4.8) k/uL Monocytes # 0.5 (0-1.0) k/uL Eosinophils # 0.2 (0-0.7) k/uL Basophils # 0.1 (0-0.2) k/uL PT 11.0 (9.0-12.0) sec INR 1.0 (<1.2) APTT 26.5 (22.0-30.0) sec D-Dimer 0.43 (<0.60) mg/L FEU Sodium 138 (137-145) mmol/L Potassium 4.0 (3.5-5.1) mmol/L Chloride 107 (98-107) mmol/L Carbon Dioxide 20 L (22-30) mmol/L Anion Gap 11 mmol/L BUN 14 (9-20) mg/dL Creatinine 1.03 (0.66-1.25) mg/dL Est GFR (CKD-EPI)AfAm >90 (>60 ml/min/1.73 sqM) Est GFR (CKD-EPI)NonAf >90 (>60 ml/min/1.73 sqM) Glucose 130 H (74-99) mg/dL Calcium 9.0 (8.4-10.2) mg/dL Magnesium 2.0 (1.6-2.3) mg/dL Total Bilirubin 0.8 (0.2-1.3) mg/dL AST 50 (17-59) U/L ALT 46 (4-49) U/L Alkaline Phosphatase 154 H (38-126) U/L Troponin I (0.000-0.034) ng/mL Total Protein 8.7 H (6.3-8.2) g/dL Albumin 4.8 (3.5-5.0) g/dL Coronavirus (PCR) (Not Detectd) 08/12/21 08/12/21 Range/Units 14:20 14:59 WBC (3.8-10.6) k/uL RBC (4.30-5.90) m/uL Hgb (13.0-17.5) gm/dL Hct (39.0-53.0) % MCV (80.0-100.0) fL MCH (25.0-35.0) pg MCHC (31.0-37.0) g/dL RDW (11.5-15.5) % Plt Count (150-450) k/uL MPV Neutrophils % % Lymphocytes % % Monocytes % % Eosinophils % % Basophils % % Neutrophils # (1.3-7.7) k/uL Lymphocytes # (1.0-4.8) k/uL Monocytes # (0-1.0) k/uL Eosinophils # (0-0.7) k/uL Basophils # (0-0.2) k/uL PT (9.0-12.0) sec INR (<1.2) APTT (22.0-30.0) sec D-Dimer (<0.60) mg/L FEU Sodium (137-145) mmol/L Potassium (3.5-5.1) mmol/L Chloride (98-107) mmol/L Carbon Dioxide (22-30) mmol/L Anion Gap mmol/L BUN (9-20) mg/dL Creatinine (0.66-1.25) mg/dL Est GFR (CKD-EPI)AfAm (>60 ml/min/1.73 sqM) Est GFR (CKD-EPI)NonAf (>60 ml/min/1.73 sqM) Glucose (74-99) mg/dL Calcium (8.4-10.2) mg/dL Magnesium (1.6-2.3) mg/dL Total Bilirubin (0.2-1.3) mg/dL AST (17-59) U/L ALT (4-49) U/L Alkaline Phosphatase (38-126) U/L Troponin I <0.012 (0.000-0.034) ng/mL Total Protein (6.3-8.2) g/dL Albumin (3.5-5.0) g/dL Coronavirus (PCR) Not Detected (Not Detectd) Disposition Clinical Impression: Atypical chest pain, Cephalgia Disposition: HOME SELF-CARE Condition: Good Instructions (If sedation given, give patient instructions): Chest Pain (ED) Is patient prescribed a controlled substance at d/c from ED?: No Referrals: [facility],Clinic [Primary Care Provider] - 1-2 days Time of Disposition: 15:54
[2021-08-12 14:31] LABS: Basophils # (A) 0.1 k/uL (0-0.2); Basophils % (A) 1 %; Eosinophils # (A) 0.2 k/uL (0-0.7); Eosinophils % (A) 3 %; HCT 45.4 % (39.0-53.0); HGB 15.8 gm/dL (13.0-17.5); Lymphocytes # (A) 2.3 k/uL (1.0-4.8); Lymphocytes % (A) 33 %; MCH 31.2 pg (25.0-35.0); MCHC 34.8 g/dL (31.0-37.0); MCV 89.7 fL (80.0-100.0); Mean Platelet Volume 7.3; Monocytes # (A) 0.5 k/uL (0-1.0); Monocytes % (A) 6 %; Neutrophils # (A) 3.9 k/uL (1.3-7.7); Neutrophils % (A) 55 %; Platelet Count 314 k/uL (150-450); RBC 5.06 m/uL (4.30-5.90); WBC 7.1 k/uL (3.8-10.6)
[2021-08-12 14:39] LABS: ALT 46 U/L (4-49); AST 50 U/L (17-59); African American GFR (CKD) >90 (>60 ml/min/1.73 sqM); Albumin 4.8 g/dL (3.5-5.0); Alkaline Phosphatase 154 U/L (38-126); Anion Gap 11 mmol/L; Blood Urea Nitrogen 14 mg/dL (9-20); Carbon Dioxide 20 mmol/L (22-30); Chloride 107 mmol/L (98-107); Glucose 130 mg/dL (74-99); Non-African American GFR(CKD) >90 (>60 ml/min/1.73 sqM); Sodium 138 mmol/L (137-145); Total Bilirubin 0.8 mg/dL (0.2-1.3); Total Protein 8.7 g/dL (6.3-8.2)
[2021-08-12 14:50] LABS: Partial Thromboplastin Time 26.5 sec (22.0-30.0)
--- NOTE | 2021-08-12 14:57 | CT ---
EXAMINATION TYPE: CT brain wo con DATE OF EXAM: 08/12/2021 COMPARISON: None. HISTORY: Acute headache. CT DLP: 1086.4 mGycm. Automated Exposure Control for Dose Reduction was Utilized. TECHNIQUE: CT scan of the head is performed without contrast. FINDINGS: There is no acute intracranial hemorrhage, mass effect, or midline shift identified. The ventricles and sulci are within normal limits in size. Severino-white matter differentiation is maintain ed. Mild to moderate mucosal thickening involving ethmoid sinuses bilaterally. The globes are intact bilaterally. IMPRESSION: Chronic ethmoid sinus disease otherwise unremarkable study.
--- NOTE | 2021-08-12 15:13 | XR ---
EXAMINATION TYPE: XR chest 2V DATE OF EXAM: 08/12/2021 COMPARISON: 10/28/2020 HISTORY: 36-year-old male with chest pain and dizziness TECHNIQUE: PA and lateral views FINDINGS: The cardiomediastinal silhouette, aorta, and pulmonary vasculature are within normal limits. Lungs an d pleural spaces are clear. IMPRESSION: No acute cardiopulmonary process.
[2021-08-12 16:14] VITALS: BP 118/76; PULSE 82; RESP 18
== END 2021-08-12 16:17 | disposition home or self-care (01) ==
LOC: EC 13:59
DX: R07.89 Other chest pain (principal); R51.9 Headache, unspecified; K21.9 Gastro-esophageal reflux disease without esophagitis; Z79.1 Long term (current) use of non-steroidal anti-inflammatories (NSAID); Z79.899 Other long term (current) drug therapy; Z20.822 Contact with and (suspected) exposure to COVID-19
CPT/HCPCS: 36415; 70450; 71046; 80053; 83735; 84484; 85025; 85379; 85610; 85730; 87635; 93005; 99285

== ENCOUNTER → 2023-01-14 | Outpatient (CLI) | payer OTHER ==
--- NOTE | 2023-01-14 09:58 | MR ---
EXAMINATION TYPE: MR lumbar spine wo con DATE OF EXAM: 01/14/2023 COMPARISON: None HISTORY: Low back pain into left buttocks/leg TECHNIQUE: Multiplanar, multisequence images of the lumbar spine were acquired without IV contrast. FINDINGS: Lumbar segments are intact. Mild retrolisthesis of L5 on S1. No pars defects identified. No paraspin al masses are identified. Conus medullaris has a normal appearance. Straightening of the normal lumb ar lordosis. Disc desiccation is present at L4-L5 and L5-S1. L1-L2: No herniation, protrusion or disc bulging. No canal stenosis is present. Foramina are patent bilaterally. L2-L3: No herniation, protrusion or disc bulging. No canal stenosis is present. Foramina are patent bilaterally. L3-L4: No herniation, protrusion or disc bulging. No canal stenosis is present. Foramina are patent bilaterally. L4-L5: Broad-based disc bulge with annular fissure. No canal stenosis is present. Foramina are paten t bilaterally. L5-S1: Mild retrolisthesis. Central disc protrusion with caudal migration of 3 mm. Minimal effacement of the anterior thecal sac. IMPRESSION: 1. L5-S1 small disc herniation with caudal migration. Minimal narrowing of the central canal. 2. Mild degenerative disc disease at L4-L5.
== END | disposition home or self-care (01) ==
LOC: RADMRIMAIN 09:15
DX: M51.36 Other intervertebral disc degeneration, lumbar region (principal); M99.73 Connective tissue and disc stenosis of intervertebral foramina of lumbar region
CPT/HCPCS: 72148

== ENCOUNTER → 2023-05-17 | Outpatient (CLI) | payer OTHER ==
--- NOTE | 2023-05-17 12:44 | MR ---
EXAMINATION TYPE: MR shoulder LT wo con DATE OF EXAM: 05/17/2023 COMPARISON: 11/17/2021 HISTORY: 37-year-old male M25.512, Lt shoulder pain TECHNIQUE: Multiplanar, multisequence imaging of the left shoulder is performed without contrast. FINDINGS: There is intermediate signal and some thickening of the junction of the intracapsular and extracapsul ar portions of the long head biceps tendon suggesting tendinosis. Mild tenosynovial fluid along the b icipital groove. Heterogeneous subscapularis tendon which remains intact. Moderate degenerative change at the AC joint with joint space narrowing, marginal spurring, capsular hypertrophy. There may be trace fluid within the subacromial/subdeltoid bursa. Heterogeneous signal intensity of the supraspinatus and infraspinatus tendons. The previous tear of the posterior surface tendon fibers located approximately 2 cm proximal to its f ootprint along the acromion has enlarged now with full-thickness extension measuring 1.2 cm long and 8 mm AP. Accompanying 1.9 cm ganglion cyst tracking along the myotendinous junction of the supraspina tus. Additional interval enlargement of tear now with contiguous extension posteriorly to the junction wit h the infraspinatus tendon measuring 8 mm long. This is articular sided extension of the tear for tot al AP dimension of 1.6 cm. Areas of severe cartilage loss throughout the glenoid humeral joint with bulky marginal spurring and mild bony remodeling. Bony remodeling causes slight thinning of posterior glenoid bone stalk and slig ht glenoid retroversion. Degenerative and torn posterior-superior labrum. Small joint effusion likely reactive. No obvious Hill-Sachs deformity or os acromiale. Red marrow hyperplasia may be seen in the setting of anemia, obesity, smoking, and chronic disease. IMPRESSION: 1. Diffuse rotator cuff tendinosis. There is enlargement of the previous tear involving the posterior supraspinatus tendon, now with full-thickness extension measuring 1.2 cm long x 0.8 cm AP (and locat ed below the acromion, 2 cm proximal to its footprint). Accompanying 1.9 cm ganglion cyst tracking al jordana the supraspinatus myotendinous junction. 2. Contiguous high-grade articular sided tear extending from here back to the junction with the infra spinatus tendon for a total AP dimension of the tear 1.6 cm. 3. Severe glenohumeral joint OA with areas of full-thickness cartilage loss. Secondary mild thinning of glenoid bone stock and slight glenoid retroversion. Redemonstrated degenerative and torn posterior superior labrum. 4. Prominent long head biceps tendinosis at the junction of the intracapsular and extracapsular porti ons. 5. Moderate AC joint OA.
== END | disposition home or self-care (01) ==
LOC: RADMRIMAIN 11:20
DX: M67.814 Other specified disorders of tendon, left shoulder (principal); M67.412 Ganglion, left shoulder; M19.012 Primary osteoarthritis, left shoulder; M25.812 Other specified joint disorders, left shoulder

== ENCOUNTER → 2023-05-24 | Outpatient (CLI) | payer OTHER ==
[2023-05-24 13:48] VITALS: BP 136/91; PULSE 76; RESP 15; TEMP 98.6
--- NOTE | 2023-05-24 14:46 | P.PAINPG ---
PQRS Measure Charge Sheet Comment: HISTORY OF PRESENT ILLNESS: A 37 yr old male as a referral from the [facility] presents today w severe and chronic LBP x 6 mo secondary to DDD, spondylosis and facet arthropathy without myelopathy for evaluation. Pt states pain level is provoked at 7/10 in intensity, constant, localized in the lumbar spine, predominantly axial, jabbing in character w shooting pain occasionally towards the LLE. Pain is provoked by bending, twisting. Pain is alleviated by PT x 6 wks in Feb 2023, chiropractic treatments semi weekly x 3mo which he is currently in, heat, medications (Neurontin 600mg #60, Ibu), repositioning and rest. Oswestry axial pain score at 24. PMH: OA, GERD, NAHID, Arrythmia (type unknown) PSH: Hernia Repair x2, BL Shoulder Surgery SH: Never smoker, Occasional ETOH use, No illicit drug use FH: Mo- No Reported History. Fa- CAD/ CABG. Sis- Thyroid Disorder. Daughter- No Reported History All: See list Meds: See list REVIEW OF ORGAN SYSTEMS: CONSTITUTIONAL: No fevers or chills. No recent weight loss. NEUROLOGICAL: + numbness and tingling along the distal extremities. No seizure disorders or headaches. MUSCULOSKELETAL: + pain PSYCHIATRIC: Denies current depression or suicidal thoughts. Physical Examinations : Constitutional : Cooperative , not in acute distress . Neurologic : Cranial nerve II to XII intact. No focal neurological deficits. Psychiatric : alert & oriented x 3. Matching mood & appropriate affect. Judgment & insight intact. Musculoskeletal : Cervical Spine Motor strength in the deltoid and biceps: Normal right side. Normal Left side Motor strength biceps and the wrist extensors: Normal right side . Normal left side Motor strength in the triceps muscle: Normal right side. Normal left side Deep tendon reflexes: Normal at the biceps. Normal at Brachioradialis. Normal at triceps Vertebral body tenderness to deep palpation over Cervical facet loading test: positive bilaterally Spurling test: positive bilaterally Neck distraction test: positive bilaterally Tavares sign: positive bilaterally Lumbar spine Motor strength lower extremities ,thigh and legs 5/5 Right side , 5/5 Left side Deep tendon reflexes : Normal Knee Jerk. Normal Ankle Jerk Vertebral body tenderness over L5 Nam Test positive Lumbar facet Loading Test: positive Right / positive Left Range of motion of the lumbar spine Flexion 30 degrees, extension 10 degrees Straight Leg Raise test: Left/ Right positive at <35 degrees Sandy test: positive right / positive left. Severe tenderness over the Sacroiliac joint on the Right / Left sides Gaenslen test: positive bilaterally Seated flexion test: positive bilaterally. Sacral spine : Severe tenderness over the Sacroiliac joint: right side / left side Range of motion: Flexion of the lumbar spine <60 degrees Range of motion: Extension of the lumbar spine <20 degrees Gaenslen's Test positive Sandy test: positive right side / left side Thigh Thrust Test Sacral Thrust Test Imaging: MRI noncontrast of the lumbar spine from 01/14/23 reviewed Assessment/ Plan : Lumbar DDD Recommendation of AWAIS L5- S1 #1. May need a series of injections for optimal pain relief. Risks, benefits of procedure discussed and patient verbalized understanding. Admits to anti- coagulant use or medical history of diabetes. Protocol for discontinuation/ continuation of medications an procedure discussed. Minimal anesthesia provided, if clinically indicated, consisting of Versed and Fentanyl. All questions answered. I have spent greater than 30 minutes on patient care today. Dr Yepez was available by phone for the evaluation of this patient. The time was used to review the medical records including relevant urine studies and Prescription history (MAPs), review of the available imaging, evaluation and examination of the patient, coordination of care with the medical staff and if applicable referring physicians, as well as creation of the medical record PQRS Narrative: Smoking Status Never smoker Home Medications: Ambulatory Orders Diltiazem Oral [Cardizem*] 60 mg PO BID 12/19/18 Omeprazole 40 mg PO DAILY 12/19/18 Ibuprofen [Motrin] 800 mg PO DAILY PRN 08/12/21 Controlled Substance Measures - Controlled Substance Measures Is patient prescribed a controlled substance at discharge?: No
== END ==
LOC: PNWHC3 12:45
PROVIDERS: ATTEND Specialist
DX: M51.16 Intervertebral disc disorders with radiculopathy, lumbar region (principal); M47.26 Other spondylosis with radiculopathy, lumbar region; M51.26 Other intervertebral disc displacement, lumbar region; M19.90 Unspecified osteoarthritis, unspecified site; K21.9 Gastro-esophageal reflux disease without esophagitis; G47.33 Obstructive sleep apnea (adult) (pediatric); Z86.79 Personal history of other diseases of the circulatory system
CPT/HCPCS: 99211

== ENCOUNTER 2023-05-30 07:24 | Day surgery (SDC) | payer OTHER ==
[2023-05-30 07:57] VITALS: RESP 16; TEMP 97
[2023-05-30] MEDS ORDERED: LACTATED RINGERS 1,000 ML IV SCH (08:26)
[2023-05-30] MEDS ORDERED: methylPREDNISolone ACETATE 80 MG/ML 1 ML VIAL ONE (08:27)
[2023-05-30] MEDS ORDERED: IOPAMIDOL M200 10 ML VIAL ONE (08:27)
--- NOTE | 2023-05-30 08:32 | P.PCN ---
Date of Procedure: 05/30/23 Procedure(s) Performed: PREOPERATIVE DIAGNOSIS: 1- Lumbar Degenerative Disc Diseases 2-lumbar spinal stenosis POSTOPERATIVE DIAGNOSIS: 1-lumbar degenerative disc disease. 2-lumbar spinal stenosis. PROCEDURE 1. Lumbar epidural steroid injection under fluoroscopic guidance at the L5-S1 level. (Fluoroscopy imaging was available in radiology department) 2. Lumbar epidurogram. ANESTHESIA: Lidocaine 1% 3 and then only. EBL: Minimal PROCEDURE INDICATION: The patient with low back pain and radiculitis symptoms unresponsive to conservative treatment. Fluoroscopy was used to optimize visualization of the needle placement and to maximize safety. PROCEDURE DESCRIPTION / TECHNIQUE: The patient was seen and identified in the preoperative area. Risks, benefits, complications including but not limited to infections ,bleeding ,allergic reaction to the medications ,nerve damage and not complete pain releife , and alternatives were discussed with the patient. The patient agreed to proceed with the procedure and signed the consent, and vital signs were stable. Patient was taken to the OR and time out was completed. The patient was placed in the prone position on procedure table and a pillow was placed under the abdomen to reduce lumbar lordosis. The lumbosacral area was prepped and draped in the usual sterile fashion.ere closely monitored during the procedure. Vital signs was monitered during the entire procedure. Using anterior-posterior fluoroscopy, the L5-S1 interlaminar space was identified and the skin over this site was marked and then infiltrated with 1% lidocaine subcutaneously. Subsequently, a 20-gauge Tuohy epidural needle was inserted and advanced toward the epidural space using the ``Loss of resistance technique and guided by AP and lateral fluoroscopy. The correct needle position in the epidural space was verified with the injection of 2 mL of the water soluble contrast dye Isovue 200 contrast and observing an excellent epidurogram with the epidural spread of the dye, after negative aspiration for blood and CSF and in the absence of paresthesias. Again after negative aspiration, a 6 ml mixture containing 80 mg of Depo-medrol ( Preservetive Free ), and 2 ml of preservative free Normal Saline, and 2 ml of preservative free lidocaine 1% solution was injected and a washout of epidurogram was seen. Needle was withdrawn intact, skin was cleansed, and bandages were applied. COMPLICATIONS: None DISPOSITION / PLANS: The patient was placed in a supine position and transferred to the recovery area in a stable condition for observation. There was no evidence of lower extremity motor or sensory deficit after the procedure. Patient was discharged from the recovery room after meeting discharge criteria. Home discharge instructions were given to the patient by the staff. The patient was reexamined prior to discharge. The patient will schedule a follow up in the clinic in 2-4 weeks.
[2023-05-30 08:54] VITALS: BP 132/86; PULSE 77
--- NOTE | 2023-05-30 09:37 | FL ---
Intraoperative/procedural fluoroscopic services were provided. Total fluoroscopy time is 2.7 seconds with a total of 2 submitted images to PACS. Please see the operative/procedural note for further deta ils. DAP: [id number] mGym2
== END 2023-05-30 09:11 | disposition home or self-care (01) ==
LOC: ORPAIN 07:24
PROVIDERS: ATTEND Specialist
DX: M51.16 Intervertebral disc disorders with radiculopathy, lumbar region (principal); M48.061 Spinal stenosis, lumbar region without neurogenic claudication; Z79.899 Other long term (current) drug therapy
CPT/HCPCS: 62323; J1040; Q9966

== ENCOUNTER → 2023-06-29 | Outpatient (CLI) | payer OTHER ==
[2023-06-29 12:38] VITALS: BP 144/72; PULSE 89; RESP 15; TEMP 98.5
--- NOTE | 2023-06-29 15:57 | P.PAINPG ---
PQRS Measure Charge Sheet Comment: HISTORY OF PRESENT ILLNESS: A 37 yr old male presents today w severe and chronic LBP x 6 mo secondary to DDD, spondylosis and facet arthropathy without myelopathy for evaluation s/p AWAIS L5- S1 #1. Pt states he experienced 70 % pain relief x 2-3 wks s/p procedure. Pt states pain level is provoked at 7/10 in intensity, constant, localized in the lumbar spine, predominantly axial, jabbing in character w shooting pain occasionally towards the LLE. Pain is provoked by bending, twisting. Pain is alleviated by PT x 6 wks in Feb 2023, chiropractic treatments semi weekly x 4 mo which he is currently in, massage therapy semi monthly x 1 mo which he is currently in, heat, medications, repositioning and rest. Oswestry axial pain score at 23. Interventional procedures include AWAIS L5- S1 #1 Medications include Neurontin 600mg #60, Ibu REVIEW OF ORGAN SYSTEMS: CONSTITUTIONAL: No fevers or chills. No recent weight loss. NEUROLOGICAL: + numbness and tingling along the distal extremities. No seizure disorders or headaches. MUSCULOSKELETAL: + pain PSYCHIATRIC: Denies current depression or suicidal thoughts. Physical Examinations : Constitutional : Cooperative , not in acute distress . Neurologic : Cranial nerve II to XII intact. No focal neurological deficits. Psychiatric : alert & oriented x 3. Matching mood & appropriate affect. Judgment & insight intact. Musculoskeletal : Cervical Spine Motor strength in the deltoid and biceps: Normal right side. Normal Left side Motor strength biceps and the wrist extensors: Normal right side . Normal left side Motor strength in the triceps muscle: Normal right side. Normal left side Deep tendon reflexes: Normal at the biceps. Normal at Brachioradialis. Normal at triceps Vertebral body tenderness to deep palpation over Cervical facet loading test: positive bilaterally Spurling test: positive bilaterally Neck distraction test: positive bilaterally Tavares sign: positive bilaterally Lumbar spine Motor strength lower extremities ,thigh and legs 5/5 Right side , 5/5 Left side Deep tendon reflexes : Normal Knee Jerk. Normal Ankle Jerk Vertebral body tenderness over L5 Nam Test positive Lumbar facet Loading Test: positive Right / positive Left Range of motion of the lumbar spine Flexion 30 degrees, extension 10 degrees Straight Leg Raise test: Left/ Right positive at <35 degrees Sandy test: positive right / positive left. Severe tenderness over the Sacroiliac joint on the Right / Left sides Monylen test: positive bilaterally Seated flexion test: positive bilaterally. Sacral spine : Severe tenderness over the Sacroiliac joint: right side / left side Range of motion: Flexion of the lumbar spine <60 degrees Range of motion: Extension of the lumbar spine <20 degrees Gaenslen's Test positive Sandy test: positive right side / left side Thigh Thrust Test Sacral Thrust Test Imaging: MRI noncontrast of the lumbar spine from 01/14/23 reviewed Assessment/ Plan : Lumbar DDD Recommendation of AWAIS L5-S1 #2. May need a series of injections for optimal pain relief. Risks, benefits of procedure discussed and patient verbalized understanding. Admits to anti- coagulant use or medical history of diabetes. Protocol for discontinuation/ continuation of medications an procedure discussed. All questions answered. I have spent greater than 30 minutes on patient care today. Dr Yepez was available by phone for the evaluation of this patient. The time was used to review the medical records including relevant urine studies and Prescription history (MAPs), review of the available imaging, evaluation and examination of the patient, coordination of care with the medical staff and if applicable referring physicians, as well as creation of the medical record PQRS Narrative: Smoking Status Never smoker Home Medications: Ambulatory Orders Diltiazem Oral [Cardizem*] 60 mg PO BID 12/19/18 Omeprazole 40 mg PO DAILY 12/19/18 Ibuprofen [Motrin] 800 mg PO DAILY PRN 08/12/21 Controlled Substance Measures - Controlled Substance Measures Is patient prescribed a controlled substance at discharge?: No
== END ==
LOC: PNWHC3 12:13
PROVIDERS: ATTEND Specialist
DX: M51.36 Other intervertebral disc degeneration, lumbar region (principal)
CPT/HCPCS: 99211

== ENCOUNTER 2023-07-18 09:53 | Day surgery (SDC) | payer OTHER ==
[2023-07-17 09:09] VITALS: BMI 36.8
[~2023-07-18 09:53] MED LIST: LACTATED RINGERS 1,000 ML IV SCH
[2023-07-18 10:13] VITALS: TEMP 96.9
[2023-07-18] MEDS ORDERED: IOPAMIDOL M200 10 ML VIAL ONE (10:56)
[2023-07-18] MEDS ORDERED: methylPREDNISolone ACETATE 80 MG/ML 1 ML VIAL ONE (10:56)
--- NOTE | 2023-07-18 11:02 | P.PCN ---
Date of Procedure: 07/18/23 Procedure(s) Performed: PREOPERATIVE DIAGNOSIS: 1- Lumbar Degenerative Disc Diseases 2-lumbar spinal stenosis POSTOPERATIVE DIAGNOSIS: 1-lumbar degenerative disc disease. 2-lumbar spinal stenosis. PROCEDURE 1. Lumbar epidural steroid injection under fluoroscopic guidance at the L5-S1 level. (Fluoroscopy imaging was available in radiology department) 2. Lumbar epidurogram. ANESTHESIA: Lidocaine 1% 3 and then only. EBL: Minimal PROCEDURE INDICATION: The patient with low back pain and radiculitis symptoms unresponsive to conservative treatment. Fluoroscopy was used to optimize visualization of the needle placement and to maximize safety. PROCEDURE DESCRIPTION / TECHNIQUE: The patient was seen and identified in the preoperative area. Risks, benefits, complications including but not limited to infections ,bleeding ,allergic reaction to the medications ,nerve damage and not complete pain releife , and alternatives were discussed with the patient. The patient agreed to proceed with the procedure and signed the consent, and vital signs were stable. Patient was taken to the OR and time out was completed. The patient was placed in the prone position on procedure table and a pillow was placed under the abdomen to reduce lumbar lordosis. The lumbosacral area was prepped and draped in the usual sterile fashion.ere closely monitored during the procedure. Vital signs was monitered during the entire procedure. Using anterior-posterior fluoroscopy, the L5-S1 interlaminar space was identified and the skin over this site was marked and then infiltrated with 1% lidocaine subcutaneously. Subsequently, a 20-gauge Tuohy epidural needle was inserted and advanced toward the epidural space using the ``Loss of resistance technique and guided by AP and lateral fluoroscopy. The correct needle position in the epidural space was verified with the injection of 2 mL of the water soluble contrast dye Isovue 200 contrast and observing an excellent epidurogram with the epidural spread of the dye, after negative aspiration for blood and CSF and in the absence of paresthesias. Again after negative aspiration, a 6 ml mixture containing 80 mg of Depo-medrol ( Preservetive Free ), and 2 ml of preservative free Normal Saline, and 2 ml of preservative free lidocaine 1% s olution was injected and a washout of epidurogram was seen. Needle was withdrawn intact, skin was cleansed, and bandages were applied. COMPLICATIONS: None DISPOSITION / PLANS: The patient was placed in a supine position and transferred to the recovery area in a stable condition for observation. There was no evidence of lower extremity motor or sensory deficit after the procedure. Patient was discharged from the recovery room after meeting discharge criteria. Home discharge instructions were given to the patient by the staff. The patient was reexamined prior to discharge. The patient will schedule a follow up in the clinic in 2-4 weeks.
--- NOTE | 2023-07-18 11:15 | FL ---
Fluoroscopy INDICATION: Pain FINDINGS: Fluoroscopy time: 1.3 seconds. Total dose area product (DAP) in uGy*m?, mGy*cm? (or similar): 0.84801 Images obtained: 2. IMPRESSION: 1. Documentation of fluoroscopy.
[2023-07-18 11:26] VITALS: BP 133/70; PULSE 70; RESP 20
== END 2023-07-18 11:25 | disposition home or self-care (01) ==
LOC: ORPAIN 09:53
PROVIDERS: ATTEND Specialist
DX: M51.36 Other intervertebral disc degeneration, lumbar region (principal); M48.061 Spinal stenosis, lumbar region without neurogenic claudication
CPT/HCPCS: 62323; J1040; Q9966

== ENCOUNTER → 2023-07-20 | Outpatient (CLI) | payer OTHER ==
--- NOTE | 2023-07-21 12:43 | US ---
EXAMINATION TYPE: US abdomen complete DATE OF EXAM: 07/20/2023 COMPARISON: NONE CLINICAL INDICATION: Male, 37 years old with history of R10.30 LOWER ABDOMINAL PAIN, UNSPECIFIED; N50 .819; Abdominal pain. TECHNIQUE: Multiple sonographic images of the abdomen are obtained. FINDINGS: EXAM MEASUREMENTS: Liver Length: 16.4 cm Gallbladder Wall: 0.2 cm CBD: Obscured Spleen: 11.0 cm Right Kidney: 11.6 x 6.0 x 5.1 cm Left Kidney: 10.9 x 5.7 x 5.8 cm TRAVEL RN NOTES: Limited due to gas. Pancreas: Not well seen. Liver: Appears coarse in echotexture. *Indistinct hypoechoic area seen adjacent to gallbladder: 2.7 x 1.1 x 1.6 cm. Gallbladder: Appears anechoic, folds seen. Evidence for sonographic Restrepo's sign: No CBD: Obscured Spleen: Appears wnl Right Kidney: No hydronephrosis or masses seen Left Kidney: No hydronephrosis or masses seen Upper IVC: Appears wnl Abd Aorta: Mid aorta was obscured. Proximal aorta appears ectatic = 2.8 cm. IMPRESSION: 1. No suspicious ultrasound abdomen abnormality. 2. Exam is somewhat limited due to bowel gas.
--- NOTE | 2023-07-21 12:47 | US ---
EXAMINATION TYPE: US scrotum with doppler. Grayscale and color Doppler Duplex imaging performed of gennaro curiel scrotum. DATE OF EXAM: 07/20/2023 COMPARISON: NONE CLINICAL INDICATION: Male, 37 years old with history of R10.30 LOWER ABDOMINAL PAIN, UNSPECIFIED; N50 .819; Left testicular dull pain. EXAM MEASUREMENTS: TESTICLES: Right Testicle: 5.2 x 3.1 x 2.5 cm Left Testicle: 5.0 x 3.0 x 2.2 cm EPIDIDYMIS HEAD: Right Epididymis: 0.6 x 1.1 x 0.8 cm Left Epididymis: 0.7 x 1.0 x 0.7 cm Doppler performed to assess for testicular vascularity; bilateral color flow and waveforms are seen. Presence of hydroceles: Yes on the right: 2.3 x 1.5 x 0.4 cm. Presence of varicoceles: No IMPRESSION: 1. Small Right sided hydrocele 2. Normal-appearing ultrasound of the testicles.
== END | disposition home or self-care (01) ==
LOC: RADUSWWP 09:02
DX: N50.819 Testicular pain, unspecified (principal); R10.30 Lower abdominal pain, unspecified
CPT/HCPCS: 76700; 76870; 93975

== ENCOUNTER → 2023-08-17 | Outpatient (CLI) | payer OTHER ==
[2023-08-17 13:35] VITALS: BP 142/82; PULSE 88; RESP 15; TEMP 98.5
--- NOTE | 2023-08-17 14:36 | P.PAINPG ---
PQRS Measure Charge Sheet Comment: HISTORY OF PRESENT ILLNESS: A 38 yr old male presents today w severe and chronic LBP x 6 mo secondary to DDD, spondylosis and facet arthropathy without myelopathy for evaluation s/p AWAIS L5- S1 #2. Pt states he experienced 80 % pain relief x 4 days s/p procedure. Pt states pain level is provoked at 6 /10 in intensity, constant, localized in the lumbar spine, predominantly axial, jabbing in character w shooting pain occasionally towards the L buttock. Pain is provoked by bending, twisting. Pain is alleviated by PT x 6 wks in Feb 2023, chiropractic treatments semi weekly x 4 mo which he is currently in, massage therapy semi monthly x 1 mo which he is currently in, heat, medications, repositioning and rest. Oswestry axial pain score at 22. Interventional procedures include AWAIS L5- S1 x2 Medications include Neurontin 600mg #60, Ibu REVIEW OF ORGAN SYSTEMS: CONSTITUTIONAL: No fevers or chills. No recent weight loss. NEUROLOGICAL: + numbness and tingling along the distal extremities. No seizure disorders or headaches. MUSCULOSKELETAL: + pain PSYCHIATRIC: Denies current depression or suicidal thoughts. Physical Examinations : Constitutional : Cooperative , not in acute distress . Neurologic : Cranial nerve II to XII intact. No focal neurological deficits. Psychiatric : alert & oriented x 3. Matching mood & appropriate affect. Judgment & insight intact. Musculoskeletal : Cervical Spine Motor strength in the deltoid and biceps: Normal right side. Normal Left side Motor strength biceps and the wrist extensors: Normal right side . Normal left side Motor strength in the triceps muscle: Normal right side. Normal left side Deep tendon reflexes: Normal at the biceps. Normal at Brachioradialis. Normal at triceps Vertebral body tenderness to deep palpation over Cervical facet loading test: positive bilaterally Spurling test: positive bilaterally Neck distraction test: positive bilaterally Tavares sign: positive bilaterally Lumbar spine Motor strength lower extremities ,thigh and legs 5/5 Right side , 5/5 Left side Deep tendon reflexes : Normal Knee Jerk. Normal Ankle Jerk Vertebral body tenderness over L5 Nam Test positive Lumbar facet Loading Test: positive Right / positive Left Range of motion of the lumbar spine Flexion 30 degrees, extension 10 degrees Straight Leg Raise test: Left/ Right positive at <35 degrees Sandy test: positive right / positive left. Severe tenderness over the Sacroiliac joint on the Right / Left sides Gaenslen test: positive bilaterally Seated flexion test: positive bilaterally. Sacral spine : Severe tenderness over the Sacroiliac joint: right side / left side Range of motion: Flexion of the lumbar spine <60 degrees Range of motion: Extension of the lumbar spine <20 degrees Gaenslen's Test positive BL Sandy test: positive right side < left side Thigh Thrust Test Sacral Thrust Test L/ R positive Imaging: MRI noncontrast of the lumbar spine from 01/14/23 reviewed Assessment/ Plan : Lumbar DDD Recommendation of BL SI injection #1. May need a series of injections for optimal pain relief. Risks, benefits of procedure discussed and patient verbalized understanding. Admits to anti- coagulant use or medical history of diabetes. Protocol for discontinuation/ continuation of medications an procedure discussed. All questions answered. I have spent greater than 30 minutes on patient care today. Dr Yepez was available by phone for the evaluation of this patient. The time was used to review the medical records including relevant urine studies and Prescription history (MAPs), review of the available imaging, evaluation and examination of the patient, coordination of care with the medical staff and if applicable referring physicians, as well as creation of the medical record PQRS Narrative: Smoking Status Never smoker Hx Alcohol Use (MH) No Home Medications: Ambulatory Orders Diltiazem Oral [Cardizem*] 60 mg PO BID 12/19/18 Omeprazole 40 mg PO DAILY 12/19/18 Ibuprofen [Motrin] 800 mg PO DAILY PRN 08/12/21 Gabapentin 300 mg PO BID 07/17/23 Controlled Substance Measures - Controlled Substance Measures Is patient prescribed a controlled substance at discharge?: No
== END ==
LOC: PNWHC3 12:39
PROVIDERS: ATTEND Specialist
DX: M51.36 Other intervertebral disc degeneration, lumbar region (principal)
CPT/HCPCS: 99211

== ENCOUNTER 2023-08-24 06:17 | Day surgery (SDC) | payer OTHER ==
[2023-08-24 06:50] VITALS: RESP 16; TEMP 97.4
[2023-08-24] MEDS ORDERED: ROPIVACAINE 5MG/ML 20ML VIAL ONE (07:41)
[2023-08-24] MEDS ORDERED: methylPREDNISolone ACETATE 80 MG/ML 1 ML VIAL ONE (07:41)
[2023-08-24] MEDS ORDERED: IOPAMIDOL M200 10 ML VIAL ONE (07:41)
[2023-08-24] MEDS ORDERED: LACTATED RINGERS 1,000 ML IV SCH (08:10)
--- NOTE | 2023-08-24 08:10 | P.PCN ---
Description of Procedure: Preprocedure diagnosis. Sacroiliac joint arthropathy. Postprocedure diagnosis. As above. Procedure done. Injection of the radio contrast material into bilateral sacroiliac joint, sacroiliac joint arthrogram, interpretation of arthrogram. Bilateral sacroiliac joint injection with local anesthetics and steroid under fluoroscopic guidance. Anesthesia. Local anesthetic infiltration. Continuous EKG, pulse ox, blood pressure, and verbal communication was maintained with the patient in OR. Blood loss. Minimal. Indication. Sacroiliac joint arthropathy. Discussed the procedure, alternatives, complications which may include infection,bleeding, nerve damage, aggravation of pain which could be permanent. Patient understands and questions were answered. Procedure note. After getting consent patient in OR in prone position. Back prepped with chlorhexidine and draped in sterile manner. After injecting 10 mL of 1% lidocaine subcutaneously, a 22-gauge spinal needle was introduced under tunnel vision of the fluoroscope in the lower and posterior one third of right sacroiliac joint. After needle position confirmation by AP and crosstable lateral view, 1 mL of Isovue 200 contrast was injected. Contrast was noted to be into the sacroiliac joint. After repeat negative aspiration, 2.5 mL solution was injected which consists of 1.5 ml of 0.5% Ropivacaine mixed with 1 mL of 40 mg Depo-Medrol. In exactly same way left sacroiliac joint was injected with same amount of solution. After the procedure needles were taken out. Bandage applied. Disposition. Patient tolerated the procedure well. No complication. Patient was discharged home in stable condition.
[2023-08-24 08:20] VITALS: BP 134/82; PULSE 73
--- NOTE | 2023-08-24 11:22 | FL ---
EXAMINATION TYPE: FL guided pain mgmt statistic DATE OF EXAM: 08/24/2023 FLUOROSCOPY Fluoroscopy time of 24 seconds was used during SI joint injection. 4 image/s document/s the procedur e. DAP: [id number] mGcym2.
== END 2023-08-24 08:24 | disposition home or self-care (01) ==
LOC: ORPAIN 06:17
PROVIDERS: ATTEND Pain Medicine Interventional Pain Medicine
DX: M46.1 Sacroiliitis, not elsewhere classified (principal)
CPT/HCPCS: 27096; J1040; Q9966; J2795

== ENCOUNTER → 2023-09-11 | Outpatient (CLI) | payer OTHER ==
--- NOTE | 2023-09-14 14:02 | MR ---
EXAMINATION TYPE: MR shoulder RT wo con DATE OF EXAM: 09/11/2023 COMPARISON: None HISTORY: Right shoulder pain with limited movement for 1 month, history of surgery 1999 TECHNIQUE: Multiplanar, multisequence imaging of the right shoulder is performed without contrast. FINDINGS: Suboptimal study due to susceptibility artifact present from metallic surgical change. Rotator Cuff: Supraspinatus and infraspinatus tendons are grossly intact. Subscapularis tendon is int act. Rotator cuff muscle bulk is preserved. Acromioclavicular Joint: Moderate to severe narrowing particularly posteriorly with moderate capsular hypertrophy and mild spurring. Type II downsloping acromion. Glenohumeral Joint: Susceptibility artifact at this level particularly the osseous glenoid. Small alonzo nt effusion. Narrowing is present inferiorly. Labrum: The labrum appears grossly intact given limitation of non-arthrogram study. Biceps Tendon: The long head of biceps is in normal location within bicipital groove. Bone marrow signal: No focal abnormal marrow signal is appreciated. Other: No additional significant abnormality is appreciated. IMPRESSION: Suboptimal study due to susceptibility artifact. No rotator cuff or labral tear clearly s een. Surgical change osseous glenoid is noted.
== END | disposition home or self-care (01) ==
LOC: RADMRIMAIN 18:52
PROVIDERS: ATTEND Family Medicine
DX: M25.511 Pain in right shoulder (principal); Z98.890 Other specified postprocedural states